=== PATIENT | male | born 1975 | race Caucasian/White ===

== ENCOUNTER 2023-01-18 09:26 | Inpatient (IN) | payer OTHER ==
[~2023-01-18] VITALS: Ht 175.3 cm; Wt 115.7 kg
[~2023-01-18 09:26] MED LIST: AUG875 PO; SULF1TAB48 PO
[2023-01-18 09:41] VITALS: BP_SYST 135; PULSE 85; RESP 18; TEMP 98.3; O2SAT 98
[2023-01-18] MEDS ORDERED: MORPHINE 4 MG INJ. 4 MG/ML VIAL IVP ONE (10:15)
[2023-01-18] MEDS ORDERED: ONDANSETRON HCL 4 MG/2 ML VIAL IVP ONE (10:15)
[2023-01-18 10:26] LABS: BASOPHILS % (AUTO) 0.4 % (0.0-2.0); EOSINOPHILS # (AUTO) 0.2 K/uL (0.0-0.4); EOSINOPHILS % (AUTO) 2.3 % (0.0-4.0); HEMATOCRIT 40.1 % (36-54); HEMOGLOBIN 13.7 g/dL (14.0-18.0); LYMPHOCYTES # (AUTO) 1.5 K/uL (1.0-5.5); LYMPHOCYTES % (AUTO) 14.8 % (20.5-51.5); MEAN CORPUSCULAR HEMOGLOBIN 31 pg (27-31); MEAN CORPUSCULAR HGB CONC 34 % (32-36); MEAN CORPUSCULAR VOLUME 92 fL (79.0-98.0); MONOCYTES # (AUTO) 0.8 K/uL (0.0-1.0); MONOCYTES % (AUTO) 7.7 % (1.7-9.3); NEUTROPHILS # (AUTO) 7.6 K/uL (1.8-7.7); NEUTROPHILS % (AUTO) 74.8 % (40.0-70.0); PLATELET COUNT (AUTO) 209 K/uL (130-430); RED BLOOD CELL COUNT(AUTO) 4.37 MIL/uL (4.2-6.2); RED CELL DISTRIBUTION WIDTH 12.9 % (9.0-15.0); WHITE BLOOD COUNT (AUTO) 10.1 K/uL (4.8-10.8)
[2023-01-18 10:42] LABS: CALCIUM 9.3 mg/dL (8.4-11.0); CREATININE 0.76 mg/dL (0.55-1.30); POTASSIUM 3.6 mmol/L (3.5-5.1)
[2023-01-18 11:44] LABS: ALBUMIN 3.4 g/dL (3.4-4.8); TOTAL BILIRUBIN 0.8 mg/dL (0.0-1.0); TOTAL PROTEIN, SERUM 7.5 g/dL (6.4-8.3)
[2023-01-18] MEDS ORDERED: CLINDAMYCIN 600 mg/50mL D5W 50 ML IV ONE (12:45)
[2023-01-18 13:16] LABS: BILIRUBIN,URINE NEGATIVE (NEGATIVE); CLARITY/URINE CLEAR (CLEAR); COLOR,URINE YELLOW (YELLOW); GLUCOSE,URINE NEGATIVE (NEGATIVE); KETONES,URINE NEGATIVE (NEGATIVE); LEUKOCYTE ESTERASE ,URINE NEGATIVE (NEGATIVE); NITRITE, URINE NEGATIVE (NEGATIVE); PROTEIN URINE NEGATIVE (NEGATIVE)
[2023-01-18 13:17] LABS: BLOOD, URINE TRACE (NEGATIVE)
[2023-01-18 13:22] LABS: BACTERIA,URINE RARE /HPF (None Seen); MUCUS,URINE 1+ /LPF (None Seen); RBC,URINE 0-3 /HPF (0-3); WBC,URINE 0-3 /HPF (0-3)
[2023-01-18] MEDS ORDERED: POTA-217 PO (13:41)
[2023-01-18] MEDS ORDERED: FURO20TA4 PO (13:41)
[2023-01-18] MEDS ORDERED: LISI-209 PO (13:41)
[2023-01-18] MEDS ORDERED: ATOR20TA64 PO (13:41)
[2023-01-18] MEDS ORDERED: CARV6.2554 PO (13:41)
[2023-01-18] MEDS: 0.45% NACL 1,000 ML IV SCH ×2 (13:45→21:04)
[2023-01-18] MEDS ORDERED: PIPERACILLIN/TAZO 3.375 GM in D5W 50 ML IV ONE (15:30)
[2023-01-18] MEDS ORDERED: PIPERACILLIN/TAZOBACTAM 3.375 GM/VIAL (ZOSYN) IV ONE (15:31)
[2023-01-18] MEDS ORDERED: AMOXICILLIN/POTASSIUM CLAV 875 MG TABLET PO SCH (21:00)
[2023-01-18] MEDS: PIPERACILLIN/TAZO 3.375/DEX-IS 50 ML IV SCH (21:04)
[2023-01-18] MEDS: SULFAMETHOXAZOLE/TRIMETHOPR DS 1 TABLET PO SCH (21:04)
[2023-01-18] MEDS: traMADol HCL HCL 50 MG TABLET (ULTRAM) PO PRN (21:11)
[2023-01-18 21:13] VITALS: BP_SYST 129; PULSE 88; RESP 18; TEMP 97.6
[2023-01-18] MEDS: VANCOMYCIN HCL 1,000 MG in NS 250 ML IV SCH (22:24)
[2023-01-19 01:07] VITALS: BP_SYST 111; PULSE 87; RESP 18; TEMP 97.7; O2SAT 96
[2023-01-19 05:33] LABS: BASOPHILS # (AUTO) 0.1 K/uL (0.0-0.2); BASOPHILS % (AUTO) 0.7 % (0.0-2.0); EOSINOPHILS # (AUTO) 0.4 K/uL (0.0-0.4); EOSINOPHILS % (AUTO) 3.5 % (0.0-4.0); HEMATOCRIT 38.4 % (36-54); HEMOGLOBIN 13.1 g/dL (14.0-18.0); LYMPHOCYTES # (AUTO) 2.3 K/uL (1.0-5.5); LYMPHOCYTES % (AUTO) 18.9 % (20.5-51.5); MEAN CORPUSCULAR HEMOGLOBIN 32 pg (27-31); MEAN CORPUSCULAR HGB CONC 34 % (32-36); MEAN CORPUSCULAR VOLUME 93 fL (79.0-98.0); MONOCYTES % (AUTO) 8.7 % (1.7-9.3); NEUTROPHILS # (AUTO) 8.2 K/uL (1.8-7.7); NEUTROPHILS % (AUTO) 68.2 % (40.0-70.0); PLATELET COUNT (AUTO) 242 K/uL (130-430); RED BLOOD CELL COUNT(AUTO) 4.15 MIL/uL (4.2-6.2); RED CELL DISTRIBUTION WIDTH 13.1 % (9.0-15.0)
[2023-01-19] MEDS: PIPERACILLIN/TAZO 3.375/DEX-IS 50 ML IV SCH ×3 (05:35→22:35)
[2023-01-19 05:37] LABS: CALCIUM 8.6 mg/dL (8.4-11.0); CREATININE 0.66 mg/dL (0.55-1.30); POTASSIUM 4.1 mmol/L (3.5-5.1)
[2023-01-19] MEDS: VANCOMYCIN HCL 1,000 MG in NS 250 ML IV SCH (06:18)
[2023-01-19 07:30] VITALS: BP_SYST 126; PULSE 76; RESP 19; TEMP 99.3; O2SAT 99
[2023-01-19] MEDS: ATORVASTATIN 20 MG TABLET PO SCH (09:21)
[2023-01-19] MEDS: POTASSIUM CHLORIDE 10 MEQ TAB.PRT.SR PO SCH (09:21)
[2023-01-19] MEDS: lisinopriL 5 MG TABLET PO SCH (09:22)
[2023-01-19] MEDS: FUROSEMIDE 20 MG TABLET PO SCH (09:23)
[2023-01-19] MEDS: CARVEDILOL 6.25 MG TABLET (COREG) PO SCH ×2 (09:23→22:33)
[2023-01-19] MEDS: SULFAMETHOXAZOLE/TRIMETHOPR DS 1 TABLET PO SCH (09:23)
[2023-01-19] MEDS: 0.45% NACL 1,000 ML IV SCH ×2 (11:19→22:34)
[2023-01-19 11:30] VITALS: BP_SYST 117; PULSE 71; RESP 18; TEMP 98.9; O2SAT 99
[2023-01-19 11:53] LABS: PROTHROMBIN TIME 10.3 SECS (9.5-12.5)
[2023-01-19 16:00] VITALS: BP_SYST 112; PULSE 76; RESP 17; TEMP 99.1; O2SAT 99
[2023-01-19 20:00] VITALS: BP_SYST 137; PULSE 79; RESP 20; TEMP 97.9; O2SAT 95
[2023-01-19] MEDS: LINEZOLID 300 ML IV SCH (22:39)
[2023-01-19] MEDS: traMADol HCL HCL 50 MG TABLET (ULTRAM) PO PRN (22:40)
[2023-01-20 01:26] VITALS: BP_SYST 103; PULSE 65; RESP 18; TEMP 97.5; O2SAT 100
[2023-01-20] MEDS: PIPERACILLIN/TAZO 3.375/DEX-IS 50 ML IV SCH ×3 (06:11→21:43)
[2023-01-20 06:50] LABS: BASOPHILS % (AUTO) 0.4 % (0.0-2.0); EOSINOPHILS # (AUTO) 0.3 K/uL (0.0-0.4); EOSINOPHILS % (AUTO) 3.5 % (0.0-4.0); HEMATOCRIT 39.6 % (36-54); HEMOGLOBIN 13.2 g/dL (14.0-18.0); LYMPHOCYTES # (AUTO) 1.5 K/uL (1.0-5.5); MEAN CORPUSCULAR HEMOGLOBIN 31 pg (27-31); MEAN CORPUSCULAR HGB CONC 33 % (32-36); MEAN CORPUSCULAR VOLUME 92 fL (79.0-98.0); MONOCYTES # (AUTO) 0.7 K/uL (0.0-1.0); MONOCYTES % (AUTO) 7.9 % (1.7-9.3); NEUTROPHILS # (AUTO) 6.7 K/uL (1.8-7.7); NEUTROPHILS % (AUTO) 72.2 % (40.0-70.0); PLATELET COUNT (AUTO) 217 K/uL (130-430); RED BLOOD CELL COUNT(AUTO) 4.29 MIL/uL (4.2-6.2); RED CELL DISTRIBUTION WIDTH 12.7 % (9.0-15.0); WHITE BLOOD COUNT (AUTO) 9.3 K/uL (4.8-10.8)
[2023-01-20 07:04] LABS: CREATININE 0.65 mg/dL (0.55-1.30); POTASSIUM 4.1 mmol/L (3.5-5.1)
[2023-01-20] MEDS: POTASSIUM CHLORIDE 10 MEQ TAB.PRT.SR PO SCH (09:00)
[2023-01-20] MEDS: lisinopriL 5 MG TABLET PO SCH (09:00)
[2023-01-20] MEDS: ATORVASTATIN 20 MG TABLET PO SCH (09:00)
[2023-01-20] MEDS: FUROSEMIDE 20 MG TABLET PO SCH (09:00)
[2023-01-20] MEDS: CARVEDILOL 6.25 MG TABLET (COREG) PO SCH ×2 (09:00→21:27)
[2023-01-20] MEDS: LINEZOLID 300 ML IV SCH ×2 (09:02→20:32)
[2023-01-20] MEDS ORDERED: PROPOFOL 200MG/ 20ML VIAL (DIPRIVAN) IV ONE (09:28)
[2023-01-20] MEDS ORDERED: NS IRRIG SOLN 1000 ML IR ONE (09:28)
[2023-01-20] MEDS ORDERED: LR 1,000 ML IV.SOLN IV ONE (09:28)
[2023-01-20] MEDS ORDERED: LIDOCAINE 1% 10 MG/ML, 20 ML MDV ONE (09:28)
[2023-01-20] MEDS ORDERED: MIDAZOLAM HCL 2 MG/2 ML VIAL (VERSED) ONE (09:36)
[2023-01-20] MEDS ORDERED: fentaNYL CITRATE/PF 100 MCG/2 ML AMP ONE ×2 (09:36→10:50)
[2023-01-20] MEDS ORDERED: ACETAMINOPHEN I.V. 1000 MG 100 ML IV ONE (09:36)
[2023-01-20] MEDS ORDERED: ONDANSETRON HCL 4 MG/2 ML VIAL IVP PRN (10:45)
[2023-01-20] MEDS ORDERED: LR 1,000 ML IV ONE (10:45)
[2023-01-20] MEDS ORDERED: fentaNYL CITRATE/PF 100 MCG/2 ML AMP IVP PRN ×3 (10:45)
[2023-01-20 11:45] VITALS: BP_SYST 134; PULSE 61; RESP 16; TEMP 98.3; O2SAT 99
[2023-01-20 15:22] VITALS: BP_SYST 128; PULSE 83; RESP 16; TEMP 97.8; O2SAT 97
[2023-01-20] MEDS: 0.45% NACL 1,000 ML IV SCH ×2 (15:45→21:27)
[2023-01-20 20:00] VITALS: BP_SYST 138; PULSE 86; RESP 17; TEMP 98.3; O2SAT 96
[2023-01-20] MEDS: traMADol HCL HCL 50 MG TABLET (ULTRAM) PO PRN (22:36)
[2023-01-21] MEDS: 0.45% NACL 1,000 ML IV SCH ×3 (01:45→22:03)
[2023-01-21 02:19] VITALS: BP_SYST 130; PULSE 89; RESP 17; TEMP 98.6; O2SAT 96
[2023-01-21] MEDS: PIPERACILLIN/TAZO 3.375/DEX-IS 50 ML IV SCH ×3 (05:58→23:44)
[2023-01-21 06:37] LABS: CALCIUM 8.8 mg/dL (8.4-11.0); CREATININE 0.63 mg/dL (0.55-1.30); POTASSIUM 3.7 mmol/L (3.5-5.1)
[2023-01-21 06:39] LABS: BASOPHILS % (AUTO) 0.5 % (0.0-2.0); EOSINOPHILS # (AUTO) 0.4 K/uL (0.0-0.4); EOSINOPHILS % (AUTO) 4.4 % (0.0-4.0); HEMATOCRIT 38.2 % (36-54); HEMOGLOBIN 13.1 g/dL (14.0-18.0); LYMPHOCYTES # (AUTO) 1.8 K/uL (1.0-5.5); LYMPHOCYTES % (AUTO) 21.5 % (20.5-51.5); MEAN CORPUSCULAR HEMOGLOBIN 31 pg (27-31); MEAN CORPUSCULAR HGB CONC 34 % (32-36); MEAN CORPUSCULAR VOLUME 91 fL (79.0-98.0); MONOCYTES # (AUTO) 0.8 K/uL (0.0-1.0); MONOCYTES % (AUTO) 9.2 % (1.7-9.3); NEUTROPHILS # (AUTO) 5.2 K/uL (1.8-7.7); NEUTROPHILS % (AUTO) 64.4 % (40.0-70.0); PLATELET COUNT (AUTO) 226 K/uL (130-430); RED BLOOD CELL COUNT(AUTO) 4.21 MIL/uL (4.2-6.2); RED CELL DISTRIBUTION WIDTH 12.9 % (9.0-15.0); WHITE BLOOD COUNT (AUTO) 8.1 K/uL (4.8-10.8)
[2023-01-21 08:00] VITALS: BP_SYST 123; PULSE 105; RESP 20; TEMP 97.2; O2SAT 100
[2023-01-21 08:06] LABS: ERYTHROCYTE SEDIMENTATION RATE 53 MM/HR (0-15)
[2023-01-21] MEDS ORDERED: OXYCODONE/ACETAMINOPHEN 5-325 TABLET PO PRN (08:30)
[2023-01-21] MEDS ORDERED: MORPHINE 2 MG/ML INJ. SYRINGE IVP PRN (08:30)
[2023-01-21] MEDS ORDERED: traMADol HCL HCL 50 MG TABLET (ULTRAM) PO PRN (08:30)
[2023-01-21] MEDS ORDERED: ACETAMINOPHEN/CODEINE 300 MG-30 MG TABLET PO PRN (08:30)
[2023-01-21] MEDS ORDERED: NALOXONE HCL 0.4 MG/ML AMP (NARCAN) IVP PRN ×2 (08:30)
[2023-01-21] MEDS: ATORVASTATIN 20 MG TABLET PO SCH (10:08)
[2023-01-21] MEDS: CARVEDILOL 6.25 MG TABLET (COREG) PO SCH ×2 (10:08→21:16)
[2023-01-21] MEDS: POTASSIUM CHLORIDE 10 MEQ TAB.PRT.SR PO SCH (10:08)
[2023-01-21] MEDS: lisinopriL 5 MG TABLET PO SCH (10:08)
[2023-01-21] MEDS: FUROSEMIDE 20 MG TABLET PO SCH (10:09)
[2023-01-21] MEDS: LINEZOLID 300 ML IV SCH ×2 (10:44→23:43)
[2023-01-21 11:21] VITALS: BP_SYST 110; PULSE 79; RESP 16; TEMP 97; O2SAT 96
[2023-01-21 15:10] VITALS: BP_SYST 108; PULSE 70; RESP 15; TEMP 97.2; O2SAT 98
[2023-01-21 19:00] VITALS: BP_SYST 120; PULSE 83; RESP 18; TEMP 98.1; O2SAT 98; O2SAT 99
[2023-01-21 20:11] VITALS: BP_SYST 120; PULSE 86; RESP 18; TEMP 98.1; O2SAT 99
[2023-01-22] VITALS: BP_SYST 116; PULSE 67; RESP 18; TEMP 97.5; O2SAT 99
[2023-01-22 05:16] LABS: ERYTHROCYTE SEDIMENTATION RATE 32 MM/HR (0-15)
[2023-01-22 05:21] LABS: BASOPHILS % (AUTO) 0.6 % (0.0-2.0); EOSINOPHILS # (AUTO) 0.4 K/uL (0.0-0.4); EOSINOPHILS % (AUTO) 5.7 % (0.0-4.0); HEMATOCRIT 38.1 % (36-54); HEMOGLOBIN 12.7 g/dL (14.0-18.0); LYMPHOCYTES # (AUTO) 2.7 K/uL (1.0-5.5); MEAN CORPUSCULAR HEMOGLOBIN 31 pg (27-31); MEAN CORPUSCULAR HGB CONC 33 % (32-36); MEAN CORPUSCULAR VOLUME 92 fL (79.0-98.0); MONOCYTES # (AUTO) 0.7 K/uL (0.0-1.0); NEUTROPHILS # (AUTO) 3.5 K/uL (1.8-7.7); NEUTROPHILS % (AUTO) 47.7 % (40.0-70.0); PLATELET COUNT (AUTO) 235 K/uL (130-430); RED BLOOD CELL COUNT(AUTO) 4.12 MIL/uL (4.2-6.2); RED CELL DISTRIBUTION WIDTH 13.1 % (9.0-15.0); WHITE BLOOD COUNT (AUTO) 7.3 K/uL (4.8-10.8)
[2023-01-22 05:39] LABS: ALBUMIN 2.7 g/dL (3.4-4.8); CALCIUM 8.8 mg/dL (8.4-11.0); CREATININE 0.7 mg/dL (0.55-1.30); POTASSIUM 3.7 mmol/L (3.5-5.1); TOTAL BILIRUBIN 0.3 mg/dL (0.0-1.0); TOTAL PROTEIN, SERUM 6.8 g/dL (6.4-8.3)
[2023-01-22] MEDS: PIPERACILLIN/TAZO 3.375/DEX-IS 50 ML IV SCH ×3 (05:40→22:48)
[2023-01-22] MEDS: 0.45% NACL 1,000 ML IV SCH ×2 (07:45→17:45)
[2023-01-22 08:00] VITALS: BP_SYST 132; PULSE 72; RESP 18; TEMP 98.2; O2SAT 99
[2023-01-22] MEDS: LINEZOLID 300 ML IV SCH ×2 (08:45→21:16)
[2023-01-22] MEDS: POTASSIUM CHLORIDE 10 MEQ TAB.PRT.SR PO SCH (09:44)
[2023-01-22] MEDS: CARVEDILOL 6.25 MG TABLET (COREG) PO SCH ×2 (09:45→22:04)
[2023-01-22] MEDS: lisinopriL 5 MG TABLET PO SCH (09:45)
[2023-01-22] MEDS: FUROSEMIDE 20 MG TABLET PO SCH (09:46)
[2023-01-22] MEDS: ATORVASTATIN 20 MG TABLET PO SCH (09:46)
[2023-01-22 12:00] VITALS: BP_SYST 123; PULSE 66; RESP 18; TEMP 98.4; O2SAT 99
[2023-01-22 16:00] VITALS: BP_SYST 128; PULSE 68; RESP 18; TEMP 97.9; O2SAT 97
[2023-01-22 20:00] VITALS: BP_SYST 127; PULSE 73; RESP 17; TEMP 98.4; O2SAT 100
[2023-01-23] VITALS: BP_SYST 116; PULSE 55; RESP 16; TEMP 97.3; O2SAT 100
[2023-01-23 00:26] VITALS: O2SAT 100
[2023-01-23] MEDS: 0.45% NACL 1,000 ML IV SCH ×2 (03:45→06:32)
[2023-01-23] MEDS: PIPERACILLIN/TAZO 3.375/DEX-IS 50 ML IV SCH (06:27)
[2023-01-23 08:20] VITALS: BP_SYST 130; PULSE 95; RESP 16; O2SAT 100
[2023-01-23] MEDS: LINEZOLID 300 ML IV SCH (10:45)
[2023-01-23] MEDS: ATORVASTATIN 20 MG TABLET PO SCH (10:47)
[2023-01-23] MEDS: FUROSEMIDE 20 MG TABLET PO SCH (10:47)
[2023-01-23] MEDS: lisinopriL 5 MG TABLET PO SCH (10:47)
[2023-01-23] MEDS: CARVEDILOL 6.25 MG TABLET (COREG) PO SCH (10:48)
[2023-01-23] MEDS: POTASSIUM CHLORIDE 10 MEQ TAB.PRT.SR PO SCH (10:50)
[2023-01-23] MEDS ORDERED: METR-154 PO (11:08)
[2023-01-23] MEDS ORDERED: LEVO-62 PO (11:08)
[2023-01-23 11:15] VITALS: BP_SYST 133; RESP 18; TEMP 99.1; O2SAT 98
[2023-01-23 11:44] VITALS: BP_SYST 133; PULSE 85; RESP 18; TEMP 99.1; O2SAT 98
[2023-01-23 11:53] VITALS: BP_SYST 133; PULSE 85; RESP 18; O2SAT 98
== END 2023-01-23 15:45 | disposition home health service (06) | DRG 603 ==
LOC: SED 09:26 → SMU 13:33
PROVIDERS: ADMIT Specialist; ATTEND Specialist
PROC: 02HV33Z Insertion of Infusion Device into Superior Vena Cava, Percutaneous Approach (ICD-10-PCS; 2023-01-19)
PROC: B548ZZA Ultrasonography of Superior Vena Cava, Guidance (ICD-10-PCS; 2023-01-19)
PROC: 0W9M0ZZ Drainage of Male Perineum, Open Approach (ICD-10-PCS; principal; 2023-01-20 09:00)
DX: L03.315 Cellulitis of perineum (principal); I42.9 Cardiomyopathy, unspecified; L02.215 Cutaneous abscess of perineum; E66.01 Morbid (severe) obesity due to excess calories; I11.0 Hypertensive heart disease with heart failure; I50.9 Heart failure, unspecified; D64.9 Anemia, unspecified; E11.65 Type 2 diabetes mellitus with hyperglycemia; Z68.37 Body mass index [BMI] 37.0-37.9, adult; Z79.899 Other long term (current) drug therapy; Z88.8 Allergy status to other drugs, medicaments and biological substances
CPT/HCPCS: 36415; 71045; 76376; 80048; 80053; 81000; 81001; 81015; 83605; 83690; 85025; 85610-TC; 85651-TC; 85730-TC; 86886; 86900; 86901; 87040; 87070; 87070-TC; 87075-TC; 87081; 96365; 96367; 96375; 99285; J0131; J2001; J2020; J2270; J2405; J2543; J2704; J3010; J3370; J3465; J3490; J7050; J7120; Q9967